=== PATIENT | female | born 1955 | race Caucasian/White ===

== ENCOUNTER 2021-01-16 12:50 | Outpatient (REF) | payer MEDICARE, MEDICAID, SELFPAY ==
--- NOTE | ~2021-01-16 | CT_ITS ---
EXAMINATION: CT CHEST WITHOUT CONTRAST CLINICAL INFORMATION: Smoking history COMPARISON: Previous chest CT August 2017 TECHNIQUE: Multidetector volumetric CT imaging of the chest was done. Axial MIP volume rendering provided. Sagittal and coronal reformatted images were obtained. This CT examination was performed using dose optimization techniques as appropriate, variously including the following: *Automated exposure control *Adjustment of mA and/or kV according to patient size (this includes techniques or standardized protocols for targeted exams where dose is matched to indication/reason for exam; i.e. extremities or head) *Use of iterative reconstruction technique DLP: 148 mGy-cm FINDINGS: LUNGS: The small pulmonary nodules are stable. Largest pulmonary nodule is a 5 mm peripheral or subpleural right upper lobe nodule axial image 264 series 7. No new pulmonary nodule is seen. There is a 1 cm cyst in the left lower lobe that is stable. MEDIASTINUM: There is evidence of atherosclerotic disease with thoracic aortic calcification. The mediastinum is otherwise normal. PLEURA: There is no pleural effusion. No pleural mass or thickening. AXILLA: There are small bilateral axillary lymph nodes that are stable. No enlarged axillary lymph nodes or chest wall mass is seen. UPPER ABDOMEN: There is fatty infiltration of the liver. OSSEOUS STRUCTURES: There are mild degenerative changes of the spine. CT/CT chest wo con IMPRESSION: Stable small pulmonary nodules.
== END 2021-01-16 12:51 | disposition home or self-care (01) ==
LOC: HO.CT 12:50
PROVIDERS: PCP Internal Medicine; Visit Provider Internal Medicine
DX: F17.209 Nicotine dependence, unspecified, with unspecified nicotine-induced disorders (principal); M85.80 Other specified disorders of bone density and structure, unspecified site
CPT/HCPCS: 71250

== ENCOUNTER 2021-01-20 13:54 | Outpatient (REF) | payer MEDICARE, MEDICAID, SELFPAY | END 2021-01-20 13:55 | disposition home or self-care (01) | LOC: HO.MAMMO 13:54 | PROVIDERS: PCP Internal Medicine; Visit Provider Internal Medicine | DX: Z13.89 Encounter for screening for other disorder (principal) ==

== ENCOUNTER → 2021-11-10 09:12 | Outpatient (BNVA) | payer MEDICARE, MEDICAID, SELFPAY | PROVIDERS: PCP Internal Medicine; Visit Provider Internal Medicine Pulmonary Disease | DX: J44.9 Chronic obstructive pulmonary disease, unspecified (principal); R91.8 Other nonspecific abnormal finding of lung field | CPT/HCPCS: 99202 ==

== ENCOUNTER 2021-12-15 09:51 | Outpatient (REF) | payer MEDICARE, MEDICAID, SELFPAY ==
--- NOTE | 2021-12-15 | PFT_ITS ---
Forced vital capacity 65%, FEV1 69%. FEV1/FVC ratio is 82. KYA01-50 84% and MVV is 66%. The bronchodilator challenge not performed because the patient had used bronchodilator inhaler within 2 hours before the test. Total lung capacity 75%. Residual volume 81%. Diffusion capacity 75% CONCLUSION: These findings suggest mild restrictive pulmonary disorder. No evidence of obstructive airway disorder. Clinical correlation is recommended. The results are compared with an old test on 10/21/2017. There is some decrease in the FVC and total lung capacity indicating increased degree of restriction. Otherwise, no change. MD AGUILA Weathers/MODL / [id number]
== END 2021-12-15 09:52 | disposition home or self-care (01) ==
LOC: HO.RESP 09:51
PROVIDERS: PCP Internal Medicine; Visit Provider Internal Medicine Pulmonary Disease
DX: R06.00 Dyspnea, unspecified (principal)
CPT/HCPCS: 94010; 94727; 94729

== ENCOUNTER 2022-06-30 09:02 | Outpatient (REF) | payer MEDICARE, MEDICAID, SELFPAY ==
--- NOTE | ~2022-06-30 | US_ITS ---
EXAMINATION: US ABDOMEN COMPLETE CLINICAL INFORMATION: Abnormal weight loss. COMPARISON: Ultrasound abdomen 04/10/2018. CT abdomen and pelvis 12/19/2015. TECHNIQUE: Real-time imaging of the abdominal viscera. FINDINGS: PANCREAS: Visualized portions of the pancreas are unremarkable. The pancreatic tail is obscured by bowel gas. ABDOMINAL AORTA: Visualized aorta is normal in caliber however portions are obscured by bowel gas. INFERIOR VENA CAVA: Visualized portions are normal. LIVER: Liver is enlarged measuring 19.1 cm in span. The liver contour is normal. There is diffuse increased liver parenchymal echogenicity, consistent with hepatic steatosis. No focal hepatic lesion. There is no intrahepatic biliary duct dilatation seen. GALLBLADDER: Fundal adenomyomatosis of the gallbladder. The gallbladder is physiologically distended without evidence of stones, sludge, polyps, wall thickening or pericholecystic fluid. COMMON BILE DUCT: Normal in caliber measuring 0.4 cm in diameter. RIGHT KIDNEY: 1.0 cm echogenic upper pole avascular renal lesion suggesting an angiomyolipoma. No hydronephrosis or renal calculi. The kidney measures 11.7 cm in maximum dimension. LEFT KIDNEY: Renal pelviectasis. No agnieszka hydronephrosis. No renal calculi or focal parenchymal lesions. The kidney measures 12.1 cm in maximum dimension. SPLEEN: Normal. The spleen measures 10.1 cm in maximum dimension. FREE FLUID: None. US/US abdomen complete IMPRESSION: 1. Hepatomegaly and hepatic steatosis. 2. Fundal adenomyomatosis of the gallbladder. 3. A 1.0 cm echogenic right renal lesion suggesting an angiomyolipoma. 4. Left renal pelviectasis without agnieszka hydronephrosis.
== END 2022-06-30 09:03 | disposition home or self-care (01) ==
LOC: HO.US 09:02
PROVIDERS: PCP Internal Medicine; Visit Provider Internal Medicine
DX: R63.4 Abnormal weight loss (principal)
CPT/HCPCS: 76700

== ENCOUNTER → 2022-09-02 10:37 | Outpatient (BNVA) | payer MEDICARE, MEDICAID, SELFPAY | PROVIDERS: PCP Internal Medicine; Visit Provider Internal Medicine Pulmonary Disease | DX: R91.8 Other nonspecific abnormal finding of lung field (principal); J44.9 Chronic obstructive pulmonary disease, unspecified; K21.9 Gastro-esophageal reflux disease without esophagitis | CPT/HCPCS: 99212 ==

== ENCOUNTER 2023-06-01 09:37 | Outpatient (REF) | payer MEDICARE, MEDICAID, SELFPAY ==
[2023-06-01 11:08] LABS: MANUAL DIFF FLAG NO
[2023-06-01 11:46] LABS: Basophils Absolute Auto 0.1 X10*3/uL (0.0-0.2); Basophils Percent Auto 0.5 % (0-2); Eosinophils Absolute Auto 0.2 X10*3/uL (0.0-0.4); Hematocrit 43.8 % (37.0-47.0); Hemoglobin 14.7 g/dl (12.0-16.0); Imm Gran Abs Auto 0.04 X10*3/uL (0.00-0.03); Imm Gran Pct Auto 0.4 % (0.0-0.4); Lymphocytes Absolute Auto 2.8 X10*3/uL (1.2-4.9); Lymphocytes Percent Auto 25.3 % (20-40); Mean Corpuscular HGB Conc 33.6 g/dl (31.0-35.0); Mean Corpuscular Hemoglobin 28.8 pg (27.0-33.0); Mean Corpuscular Volume 85.9 fL (80.0-98.0); Mean Platelet Volume 12.4 fL (9.4-12.3); Monocytes Absolute Auto 0.5 X10*3/uL (0.1-1.2); Monocytes Percent Auto 4.4 % (2-11); Neutrophils Absolute Auto 7.5 x10*3/uL (2.0-8.3); Neutrophils Percent Auto 67.4 % (45-73); Platelet Count 290 X10*3/uL (160-400); Red Cell Distribution Width 13.6 % (11.0-16.0); White Blood Count 11.1 X10*3/uL (4.8-10.8)
[2023-06-01 11:55] LABS: Alanine Aminotransferase 11 U/L (0-31); Albumin Level 4.2 g/dL (3.5-5.0); Alkaline Phosphatase 96 U/L (39-117); Anion Gap 11 (12-20); Aspartate Amino Transferase 12 U/L (5-31); Bilirubin Direct 0.1 mg/dL (0.0-0.5); Bilirubin Total 0.4 mg/dL (0.0-1.0); Blood Urea Nitrogen 6 mg/dL (9-16); Calcium 9.6 mg/dL (8.4-10.2); Carbon Dioxide 30 mmol/L (22-29); Chloride 102 mmol/L (96-108); Estimated Glomerular Filt Rate > 60; Glucose Random 247 mg/dL (60-115); Potassium 3.2 mmol/L (3.3-5.1); Sodium 140 mmol/L (135-145); Total Protein 7.6 g/dL (6.5-8.0)
[2023-06-01 12:01] LABS: Cholesterol 232 mg/dL (<200); HDL Cholesterol 34 mg/dL (>40); LDL Cholesterol Calculated 166 mg/dL (<100); Triglycerides 161 mg/dL (<150)
[2023-06-01 12:10] LABS: TSH reflex Free T4 2.22 uIU/mL (0.32-4.0); Vitamin D 25-OH Total 32.7 ng/mL (>30)
[2023-06-01 12:19] LABS: Folate 8.4 ng/mL (> or = 4.0); Vitamin B12 1051 pg/mL (200-900)
[2023-06-01 12:53] LABS: Reflex LDLD? No
[2023-06-04 00:54] LABS: TS Negative Control Passed; TS Panel A 1; TS Panel B 0; TS Positive Control Passed; TSpotTB Negative (Negative)
== END 2023-06-01 09:38 | disposition home or self-care (01) ==
LOC: HO.HHCL 09:37
PROVIDERS: Visit Provider Internal Medicine
DX: M19.90 Unspecified osteoarthritis, unspecified site (principal); E55.9 Vitamin D deficiency, unspecified; F33.41 Major depressive disorder, recurrent, in partial remission; I10 Essential (primary) hypertension; J42 Unspecified chronic bronchitis
CPT/HCPCS: 36415; 80053; 80061; 82248; 82306; 82607; 82746; 84443; 85025; 86481

== ENCOUNTER 2023-07-06 10:32 | Outpatient (REF) | payer MEDICARE, MEDICAID, SELFPAY ==
[2023-07-06 11:55] LABS: Estimated Average Glucose 235 mg/dL; Hemoglobin A1c % 9.8 % (<6.0)
[2023-07-06 12:16] LABS: Anion Gap 16 (12-20); Blood Urea Nitrogen 7 mg/dL (9-16); Calcium 9.8 mg/dL (8.4-10.2); Carbon Dioxide 25 mmol/L (22-29); Chloride 102 mmol/L (96-108); Estimated Glomerular Filt Rate > 60; Glucose Random 281 mg/dL (60-115); Potassium 3.8 mmol/L (3.3-5.1); Sodium 139 mmol/L (135-145)
== END 2023-07-06 10:33 | disposition home or self-care (01) ==
LOC: HO.HHCL 10:32
PROVIDERS: Visit Provider Internal Medicine
DX: R73.9 Hyperglycemia, unspecified (principal); E87.6 Hypokalemia
CPT/HCPCS: 36415; 80048; 83036

== ENCOUNTER 2023-09-29 11:38 | Outpatient (REF) | payer MEDICARE, MEDICAID, SELFPAY ==
--- NOTE | ~2023-09-29 | XR_ITS ---
Examination: XR LUMBAR SPINE, LEFT KNEE, LEFT HIP, RIGHT HIP CLINICAL INFORMATION: Patient stated she fell 2 weeks ago. Has pain in bilateral hips, left knee and lower back. COMPARISON: CT chest of 01/16/2021. CT abdomen and pelvis of 12/19/2015. TECHNIQUE: 5 views of the lumbar spine. AP and lateral views of each hip. 4 views of the left knee. FINDINGS: Left Knee: Trace joint effusion. Mild narrowing of the medial compartment. Alignment preserved. Left Hip: Moderate narrowing of the left hip joint with lateral acetabular hypertrophic change. Alignment preserved. Small rounded pelvic calcifications are likely vascular. Right Hip: Moderate narrowing of the right hip joint with lateral acetabular hypertrophic change. Alignment is preserved. Degenerative changes on very limited images of the inferior aspect of the right sacroiliac joint. Lumbar Spine: Straightening of the normal lumbar lordosis. Mild degenerative changes in the imaged lower thoracic spine. Facet arthritis in the lower lumbar spine. Moderate multilevel lumbar spondylosis. The bones are diffusely demineralized. Atherosclerotic aortic calcifications. Limited visualization due to overlying bony and soft tissue structures. XR/XR hip LT min 2V IMPRESSION: 1. Moderate degenerative changes bilateral hips. 2. Moderate multilevel lumbar spondylosis. 3. Facet arthritis in the lower lumbar spine. 4. Mild degenerative changes left knee. 5. Additional imaging with CT scan or MRI should be considered if there is clinical concern for fracture for this patient with history of recent trauma, as these modalities are much more sensitive for detection of fracture or other underlying pathology.
--- NOTE | ~2023-09-29 | XR_ITS ---
Examination: XR LUMBAR SPINE, LEFT KNEE, LEFT HIP, RIGHT HIP CLINICAL INFORMATION: Patient stated she fell 2 weeks ago. Has pain in bilateral hips, left knee and lower back. COMPARISON: CT chest of 01/16/2021. CT abdomen and pelvis of 12/19/2015. TECHNIQUE: 5 views of the lumbar spine. AP and lateral views of each hip. 4 views of the left knee. FINDINGS: Left Knee: Trace joint effusion. Mild narrowing of the medial compartment. Alignment preserved. Left Hip: Moderate narrowing of the left hip joint with lateral acetabular hypertrophic change. Alignment preserved. Small rounded pelvic calcifications are likely vascular. Right Hip: Moderate narrowing of the right hip joint with lateral acetabular hypertrophic change. Alignment is preserved. Degenerative changes on very limited images of the inferior aspect of the right sacroiliac joint. Lumbar Spine: Straightening of the normal lumbar lordosis. Mild degenerative changes in the imaged lower thoracic spine. Facet arthritis in the lower lumbar spine. Moderate multilevel lumbar spondylosis. The bones are diffusely demineralized. Atherosclerotic aortic calcifications. Limited visualization due to overlying bony and soft tissue structures. XR/XR knee LT 4V IMPRESSION: 1. Moderate degenerative changes bilateral hips. 2. Moderate multilevel lumbar spondylosis. 3. Facet arthritis in the lower lumbar spine. 4. Mild degenerative changes left knee. 5. Additional imaging with CT scan or MRI should be considered if there is clinical concern for fracture for this patient with history of recent trauma, as these modalities are much more sensitive for detection of fracture or other underlying pathology.
--- NOTE | ~2023-09-29 | XR_ITS ---
Examination: XR LUMBAR SPINE, LEFT KNEE, LEFT HIP, RIGHT HIP CLINICAL INFORMATION: Patient stated she fell 2 weeks ago. Has pain in bilateral hips, left knee and lower back. COMPARISON: CT chest of 01/16/2021. CT abdomen and pelvis of 12/19/2015. TECHNIQUE: 5 views of the lumbar spine. AP and lateral views of each hip. 4 views of the left knee. FINDINGS: Left Knee: Trace joint effusion. Mild narrowing of the medial compartment. Alignment preserved. Left Hip: Moderate narrowing of the left hip joint with lateral acetabular hypertrophic change. Alignment preserved. Small rounded pelvic calcifications are likely vascular. Right Hip: Moderate narrowing of the right hip joint with lateral acetabular hypertrophic change. Alignment is preserved. Degenerative changes on very limited images of the inferior aspect of the right sacroiliac joint. Lumbar Spine: Straightening of the normal lumbar lordosis. Mild degenerative changes in the imaged lower thoracic spine. Facet arthritis in the lower lumbar spine. Moderate multilevel lumbar spondylosis. The bones are diffusely demineralized. Atherosclerotic aortic calcifications. Limited visualization due to overlying bony and soft tissue structures. XR/XR hip RT min 2V IMPRESSION: 1. Moderate degenerative changes bilateral hips. 2. Moderate multilevel lumbar spondylosis. 3. Facet arthritis in the lower lumbar spine. 4. Mild degenerative changes left knee. 5. Additional imaging with CT scan or MRI should be considered if there is clinical concern for fracture for this patient with history of recent trauma, as these modalities are much more sensitive for detection of fracture or other underlying pathology.
--- NOTE | ~2023-09-29 | XR_ITS ---
Examination: XR LUMBAR SPINE, LEFT KNEE, LEFT HIP, RIGHT HIP CLINICAL INFORMATION: Patient stated she fell 2 weeks ago. Has pain in bilateral hips, left knee and lower back. COMPARISON: CT chest of 01/16/2021. CT abdomen and pelvis of 12/19/2015. TECHNIQUE: 5 views of the lumbar spine. AP and lateral views of each hip. 4 views of the left knee. FINDINGS: Left Knee: Trace joint effusion. Mild narrowing of the medial compartment. Alignment preserved. Left Hip: Moderate narrowing of the left hip joint with lateral acetabular hypertrophic change. Alignment preserved. Small rounded pelvic calcifications are likely vascular. Right Hip: Moderate narrowing of the right hip joint with lateral acetabular hypertrophic change. Alignment is preserved. Degenerative changes on very limited images of the inferior aspect of the right sacroiliac joint. Lumbar Spine: Straightening of the normal lumbar lordosis. Mild degenerative changes in the imaged lower thoracic spine. Facet arthritis in the lower lumbar spine. Moderate multilevel lumbar spondylosis. The bones are diffusely demineralized. Atherosclerotic aortic calcifications. Limited visualization due to overlying bony and soft tissue structures. XR/XR lumbar spine 4V min IMPRESSION: 1. Moderate degenerative changes bilateral hips. 2. Moderate multilevel lumbar spondylosis. 3. Facet arthritis in the lower lumbar spine. 4. Mild degenerative changes left knee. 5. Additional imaging with CT scan or MRI should be considered if there is clinical concern for fracture for this patient with history of recent trauma, as these modalities are much more sensitive for detection of fracture or other underlying pathology.
== END 2023-09-29 11:39 | disposition home or self-care (01) ==
LOC: HO.HHCX 11:38
PROVIDERS: Visit Provider Internal Medicine
DX: M25.551 Pain in right hip (principal); M25.552 Pain in left hip; Z91.81 History of falling
CPT/HCPCS: 72110; 73502; 73564

== ENCOUNTER 2024-06-22 13:20 | Outpatient (REF) | payer MEDICARE, MEDICAID, SELFPAY ==
[2024-06-22 16:38] LABS: Anion Gap 10 (12-20); Blood Urea Nitrogen 9 mg/dL (9-16); Calcium 9.9 mg/dL (8.4-10.2); Carbon Dioxide 29 mmol/L (22-29); Chloride 104 mmol/L (96-108); Cholesterol 120 mg/dL (<200); Estimated Glomerular Filt Rate > 60; Glucose Random 147 mg/dL (60-115); HDL Cholesterol 31 mg/dL (>40); LDL Cholesterol Calculated 61 mg/dL (<100); Potassium 3.6 mmol/L (3.3-5.1); Sodium 139 mmol/L (135-145); Triglycerides 141 mg/dL (<150)
[2024-06-22 16:57] LABS: Vitamin D 25-OH Total 34.4 ng/mL (>30)
[2024-06-22 17:29] LABS: Reflex LDLD? No
== END 2024-06-22 13:21 | disposition home or self-care (01) ==
LOC: HO.HHCL 13:20
PROVIDERS: Visit Provider Internal Medicine
DX: E11.65 Type 2 diabetes mellitus with hyperglycemia (principal); I10 Essential (primary) hypertension; M77.11 Lateral epicondylitis, right elbow; M89.9 Disorder of bone, unspecified
CPT/HCPCS: 36415; 80048; 80061; 82306

== ENCOUNTER 2025-02-20 11:42 | Outpatient (REF) | payer MEDICARE, MEDICAID, SELFPAY ==
--- OUTSIDE RECORDS SUMMARY | 2025-02-20 12:30 | XMS_ITS | Clinical Summary ---
Author Organization [facility] Address [address] [place] [address] Phone Care Team Providers Care American Studies Professor Name Role Phone Chasidy Cox MD Primary Care Provider + Allergies No known active allergies Medications raNITIdine (ZANTAC) 15 mg/mL syrup Active sertraline (ZOLOFT) 100 MG tablet Active AMLODIPINE BESYLATE (AMLODIPINE ORAL) Active aspirin 81 mg chewable tablet Take 1 tablet (81 mg total) by mouth daily. 30 tablet 06/23/2017 Active naproxen (NAPROSYN) 500 MG tablet Take 1 tablet (500 mg total) by mouth 2 (two) times a day as needed. 30 tablet 01/31/2024 Active Encounters Date Type Department Care Team Description 12/08/2024 Refill [facility] at [address] [id number] Henry Rojas PA-C Medication Refill 11/21/2024 Refill [facility] at [address] [address] Henry Rojas PA-C Medication Refill from Last 3 Months Social History Tobacco Use Types Packs/Day Years Used Date Smoking Tobacco: Some Days Tobacco Cessation:Ready to Q uit: No Education Answer Date Recorded Are you interested in more education? Not on tavo e 01/31/2024 Are you concerned about learning? Not on file 01/31/2024 No 01/31/2024 No 01/31/2024 Digital Access Answer Date Recorded No 01/31/2024 No 01/31/2024 Reliable internet access at home? Not on file 01/31/2024 Device with a working camera? Not on file Intimate Partner Violence Answer Date R ecorded Are you denied basic needs s uch as food, clothing, or medical care? No 01/31/2024 In the past 12 months have y ou been in a relationship with a person who hurts, threatens, or tries to control you? No 01/31/2024 Are you denied basic needs s uch as food, clothing, or medical care? No 01/31/2024 In the past 12 months have y ou been in a relationship with a person who hurts, threatens, or tries to control you? No 01/31/2024 Comments Unknown Sex and Gender Information Value Date Recorded Sex Assigned at Female 07/25/2017 9:38 AM EST Legal Sex Female 3:46 PM EST Gender Identity Female 07/25/2017 9:38 AM EST Sexual Orientation Straight 07/25/2017 9: 38 AM EST Last Filed Vital Signs Vital Sign Reading Time Taken Comments Blood Pressure 125/72 01/31/2024 12:35 PM EDT Pulse 79 01/31/2024 12:35 PM EDT Temperature 36.7 C (98.1 F) 01/31/2024 12:35 PM EDT Respiratory Rate 19 01/31/2024 12:35 PM EDT Oxygen Saturation 96% 01/31/2024 12:35 PM EDT Inhaled Oxygen Concentration - - Weight 75.3 kg (166 lb) 01/31/2024 12:35 PM EDT Height 157.5 cm (5' 2 ) 01/31/2024 12:35 PM EDT Body Mass Index 30.36 01/31/2024 12:35 PM EDT Plan of Treatment Health Maintenance Due Date Last Done Comments LIPID PANEL 1954 DEPRESSION SCREENING 1966 SMOKING Hx and SMOKELESS TOBACCO SCREENING 1967 HEPATITIS C SCREENING 02/05/1972 COLOGUARD 1999 COLONOSCOPY 1999 COLORECTAL CANCER SCREENING 1999 FIT TEST 1999 FOBT 1999 SIGMOIDOSCOPY 1999 VIRTUAL COLONOSCOPY 1999 ZOSTER VACCINES (1 of 2) 02/05/2004 PNEUMOCOCCAL VACCINES (50+ years) (2 of 2 - PCV) 01/30/2009 01/31/2008 Adult Td,Tdap Booster 01/30/2018 01/31/2008 OSTEOPOROSIS SCREENING INITI AL (ONE-TIME) 2019 MAMMOGRAM 04/11/2020 04/11/2018, 04/11/2018 COVID-19 VACCINE (1 - 2023-2 5 season) 2024 RSV VACCINE (1 - 1-dose 75+ series) 2029 HEPATITIS A VACCINES Aged Out No long er eligible based on patient's age to complete this topic HIB VACCINES Aged Out No longer eligi ble based on patient's age to complete this topic MENINGOCOCCAL VACCINES (ACWY) Aged Out No longer eligible based on patient's age to complete this topic MENINGOCOCCAL VACCINES (B) Aged Out N o longer eligible based on patient's age to complete this topic Medical Devices Not on file Insurance [facility] MEDICARE PART A & B MEDICARE PART A & B [facility] [place] [facility] [place] PART [place] B MEDIC[place] PART A & [place] A & B Care Teams American Studies Professor Relationship Specialty Start Date End Date Chasidy Cox MD [address] [place] [address] [id number] [place] [id number] PCP - General Internal Medicine 06/23/17 Additional Source Comments The information contained in this document represents components of the legal health record. It is not the complete legal health record.[facility]
== END 2025-02-20 11:43 | disposition home or self-care (01) ==
LOC: HO.CT 11:42
PROVIDERS: PCP Internal Medicine; Visit Provider Internal Medicine
DX: Z13.89 Encounter for screening for other disorder (principal)